=== PATIENT | male | born 1955 | race Caucasian/White ===

== ENCOUNTER 2024-04-29 10:09 | Day surgery (SDC) | payer MEDICARE, MEDICAID ==
[2024-04-25 13:57] LABS: BASOPHILS # (AUTO) 0.1 X10'3 (0-0.2); EOSINOPHILS # (AUTO) 0.2 X10'3 (0-0.9); LYMPHOCYTES # (AUTO) 1.1 X10'3 (1.1-4.8); LYMPHOCYTES % (AUTO) 23.3 % (21-51); MONOCYTES # (AUTO) 0.5 X10'3 (0-0.9); RED CELL DISTRIBUTION WIDTH 13.6 % (11.5-14.5)
[2024-04-25 13:59] LABS: BASOPHILS % (AUTO) 2.8 % (0-1); EOSINOPHILS % (AUTO) 4.7 % (0-6); HEMATOCRIT 45.8 % (42.0-52.0); HEMOGLOBIN 15.7 g/dl (14.0-17.9); MEAN CORPUSCULAR HGB CONC 34.4 g/dL (33.0-36.5); MEAN PLATELET VOLUME 9.3 FL (7.4-10.4); MONOCYTES % (AUTO) 10.8 % (2-12); NEUTROPHILS # (AUTO) 2.7 X10'3 (1.8-7.7); NEUTROPHILS % (AUTO) 58.4 % (42-75); PLATELET COUNT 229 X10'3 (140-440); RED BLOOD COUNT 4.77 X10'6 (4.70-6.10); WHITE BLOOD COUNT 4.6 X10'3 (4.5-11.0)
[2024-04-25 14:06] LABS: APTT 26 SECONDS (22-32); INR 1.1 INR; PROTHROMBIN TIME 11.3 SECONDS (9.0-12.0)
[2024-04-25 14:08] LABS: ANION GAP 3 (8-16); BLOOD UREA NITROGEN 12 MG/DL (7-18); BUN/CREATININE RATIO 8.1 (10.0-20.0); CALCIUM 9.7 MG/DL (8.5-10.1); CHLORIDE 104 MMOL/L (99-107); CREATININE 1.48 MG/DL (0.60-1.10); GLUCOSE 115 MG/DL (70-104); POTASSIUM 4.9 MMOL/L (3.5-5.1); SODIUM 141 MMOL/L (135-145); eGFR 47 ML/MIN
[2024-04-25 14:09] LABS: ALBUMIN 4.2 G/DL (3.4-5.0); CHOL/HDL RATIO 2.5 (0.00-4.99); CHOLESTEROL 211 MG/DL (0-200); HDL CHOLESTEROL 83 MG/DL (35-60); LDL CHOLESTEROL 110 MG/DL (50-100); TRIGLYCERIDES 169 MG/DL (20-135)
[~2024-04-29] VITALS: Ht 188 cm; Wt 80.2 kg
[2024-04-29] VITALS (10 sets, daily range): BP systolic 98–151; BP diastolic 58–101; PULSE 44–112; RESP 12–24; TEMP 99.1; O2SAT 95–100
[2024-04-29] MEDS ORDERED: OXYC-752 PO (10:42)
[2024-04-29] MEDS ORDERED: TEST75GE10 TOP (10:42)
[2024-04-29] MEDS ORDERED: IBUP-2697 PO (10:42)
[2024-04-29] MEDS ORDERED: AMIT10TA6 PO (10:44)
[2024-04-29] MEDS ORDERED: AMITRIPTYLINE HCL PO (10:44)
[2024-04-29] MEDS ORDERED: APIX5TAB3 PO (10:45)
[2024-04-29] MEDS ORDERED: SOTA80TA73 PO (10:46)
[2024-04-29] MEDS: MIDAZolam 1mg/ml 10ml vial IV ONE (13:05)
[2024-04-29] MEDS: fentaNYL/PF 50MCG/1 ML 2ML syringe IV ONE (13:05)
[2024-04-29] MEDS: normal saline 1000ml 1,000 ML IV SCH (13:05)
== END 2024-04-29 14:23 | disposition home or self-care (01) ==
LOC: SSTAY O 10:09
PROVIDERS: ATTEND Internal Medicine Interventional Cardiology
DX: I48.0 Paroxysmal atrial fibrillation (principal); I49.1 Atrial premature depolarization; N18.31 Chronic kidney disease, stage 3a; F41.9 Anxiety disorder, unspecified; M10.9 Gout, unspecified; Z79.01 Long term (current) use of anticoagulants; Z79.1 Long term (current) use of non-steroidal anti-inflammatories (NSAID); Z79.891 Long term (current) use of opiate analgesic; Z79.899 Other long term (current) drug therapy; Z88.8 Allergy status to other drugs, medicaments and biological substances
CPT/HCPCS: 80048; 80061; 85025; 85610; 85730; 92960; 93005; J2250; J3010; J7030; Z7610